=== PATIENT | female | born 1955 | race Caucasian/White ===

== ENCOUNTER 2018-07-19 05:05 | Emergency (ER) | payer OTHER ==
--- NOTE | 2018-07-19 05:11 | PDOC ---
History of Present Illness - General History Source: Patient Exam Limitations: No Limitations - History of Present Illness Initial Comments: 07/19/18 06:03 The patient is a 63 year old female, with a significant past medical history of DM, HTN, HLD, who presents to the emergency department s/p mechanical fall with , left ankle pain. As per patient, she was at a bar drinking tequila and playing pool when she jumped up and fell inverting her left ankle while wearing heels. She reports hearing and feeling a crack in the left ankle. She describes her pain as a constant 10/10. She denies hitting her head or any loss of consciousness. She denies recent fevers, chills, headache or dizziness. She denies recent nausea, vomit, diarrhea or constipation. She denies recent dysuria, frequency, urgency or hematuria. She denies recent chest pain or shortness of breath. Allergies: Naproxen sodium, tramadol, aleve Primary Care Physician: Dr. Mcconnell <Kalee Arnold - Last Filed: 07/19/18 06:14> <Stephanie Shook - Last Filed: 07/19/18 19:41> - General Stated Complaint: INJURY,LT ANKLE Time Seen by Provider: 07/19/18 05:11 Past History <Kalee Arnold - Last Filed: 07/19/18 06:14> - Past Medical History Anemia: Yes Asthma: No Cancer: No Cardiac Disorders: No CVA: No COPD: No CHF: No Dementia: No Diabetes: Yes (NIDDM) GI Disorders: Yes (ACID REFLUX) Disorders: No HTN: Yes Hypercholesterolemia: Yes Liver Disease: No Seizures: No Thyroid Disease: No - Surgical History Abdominal Surgery: No Appendectomy: No Cardiac Surgery: No Cholecystectomy: Yes Lung Surgery: No Neurologic Surgery: Yes (surgery back and neck) Orthopedic Surgery: No - Immunization History Immunization Up to Date: Yes - Suicide/Smoking/Psychosocial Hx Smoking Status: No Smoking History: Never smoked Have you smoked in the past 12 months: No Number of Cigarettes Smoked Daily: 0 If you are a former smoker, when did you quit?: 6YRS AGO Hx Alcohol Use: No Drug/Substance Use Hx: No Substance Use Type: None Hx Substance Use Treatment: No <Stephanie Shook - Last Filed: 07/19/18 19:41> - Past Medical History Allergies/Adverse Reactions: Allergies Allergy/AdvReac Type Severity Reaction Status Date / Time naproxen sodium Allergy Severe Hives Verified 07/19/18 05:29 [From Anaprox] tramadol Allergy Severe Hives Verified 07/19/18 05:29 ALLEVE AdvReac Severe Hives Uncoded 07/19/18 05:29 Home Medications: Ambulatory Orders Oxycodone HCl/Acetaminophen [Percocet 5-325 mg Tablet] 1 - 2 tab PO Q6H PRN #24 tab MDD 8 tabs 07/19/18 Review of Systems - Review of Systems Able to Perform ROS?: Yes Comments:: 07/19/18 06:03 GENERAL/CONSTITUTIONAL: No fever or chills. No weakness. HEAD, EYES, EARS, NOSE AND THROAT: No change in vision. No ear pain or discharge. No sore throat. CARDIOVASCULAR: No chest pain or shortness of breath. RESPIRATORY: No cough, wheezing, or hemoptysis. GASTROINTESTINAL: No nausea, vomiting, diarrhea or constipation. GENITOURINARY: No dysuria, frequency, or change in urination. +MUSCULOSKELETAL: Left ankle pain. No neck or back pain. SKIN: No rash NEUROLOGIC: No headache, vertigo, loss of consciousness, or change in strength/ sensation. ENDOCRINE: No increased thirst. No abnormal weight change. HEMATOLOGIC/LYMPHATIC: No anemia, easy bleeding, or history of blood clots. ALLERGIC/IMMUNOLOGIC: No hives or skin allergy. All Other Systems: Reviewed and Negative <Kalee Arnold - Last Filed: 07/19/18 06:14> *Physical Exam - Vital Signs Last Vital Signs Temp Pulse Resp BP Pulse Ox 98.2 F 109 H 20 123/79 96 07/19/18 05:18 07/19/18 05:18 07/19/18 05:18 07/19/18 05:18 07/19/18 05:18 - Physical Exam Comments: 07/19/18 06:14 GENERAL: Awake, alert, and fully oriented, in no acute distress HEAD: No signs of trauma EYES: PERRLA, EOMI, sclera anicteric, conjunctiva clear ENT: Auricles normal inspection, hearing grossly normal, nares patent, oropharynx clear without exudates. Moist mucosa NECK: Normal ROM, supple, no lymphadenopathy, JVD, or masses LUNGS: Breath sounds equal, clear to auscultation bilaterally. No wheezes, and no crackles HEART: Regular rate and rhythm, normal S1 and S2, no murmurs, rubs or gallops ABDOMEN: Soft, nontender, normoactive bowel sounds. No guarding, no rebound. No masses +LEFT ANKLE: Left ankle deformity to the medial aspect with large swelling and bruising. DP and PT pulses are intact. Tenderness with movement to the ankle. Able to move toes. Unstable fracture noted, will admit. NEUROLOGICAL: Cranial nerves II through XII grossly intact. Normal speech, normal gait SKIN: Warm, Dry, normal turgor, no rashes or lesions noted. <Kalee Arnold - Last Filed: 07/19/18 06:14> ED Treatment Course - Medications Given in the ED: ED Medications Discontinued Medications Generic Name Dose Route Start Last Admin Trade Name Freq PRN Reason Stop Dose Admin Oxycodone/Acetaminophen 2 combo 07/19/18 05:11 07/19/18 05:35 Percocet 5/325 - PO 07/19/18 05:12 2 combo ONCE ONE Administration <Kalee Arnold - Last Filed: 07/19/18 06:14> - LABORATORY CBC & Chemistry Diagram: 07/19/18 06:18 07/19/18 06:18 <Stephanie Shook - Last Filed: 07/19/18 19:41> Medical Decision Making - Medical Decision Making 07/19/18 06:11 Pt has an unstable left ankle fracture she will get XRAYs and preop labs and she will be admitted. 07/19/18 07:23 Pt signed out to the day team attending in the ER <Stephanie Shook - Last Filed: 07/19/18 19:41> *DC/Admit/Observation/Transfer - Attestations Scribe Attestion: 07/19/18 06:03 Documentation prepared by Kalee Arnold, acting as medical insurance claims processor for Stephanie Shook MD. <Kalee Arnold - Last Filed: 07/19/18 06:14> <Stephanie Shook - Last Filed: 07/19/18 19:41> Diagnosis at time of Disposition: Closed left tibial fracture, Closed fibular fracture - Discharge Dispostion Disposition: HOME Condition at time of disposition: Stable - Prescriptions Prescriptions: Oxycodone HCl/Acetaminophen [Percocet 5-325 mg Tablet] 1 - 2 tab PO Q6H PRN #24 tab MDD 8 tabs PRN Reason: Severe Pain - Referrals Referrals: Alfonzo Peres MD [Primary Care Provider] - Jt Coy MD [Staff Physician] - - Patient Instructions Printed Discharge Instructions: DI for Ankle Fracture Additional Instructions: Please return to the emergency department with any new or worsening symptoms or concerns. Please follow up with your primary care physician within 72 hours. Please remain non weight bearing off foot and ambulate with crutches until able to follow up with Dr. Coy orthopedist in office within 4-5 days. Please keep foot dry and do not remove cast. Take medication as prescribed for pain control.
[2018-07-19 05:29] VITALS: BMI 29.6
[2018-07-19 06:39] LABS: BASO % 0.5 % (0-2.0); EOS % 0.2 % (0-4.5); HEMATOCRIT 40.6 % (32.4-45.2); HEMOGLOBIN 13.8 GM/dL (10.7-15.3); LYMPH % 20.5 % (8-40); MCHC 33.9 g/dl (32.0-36.0); MEAN CELL VOLUME 88.7 fl (80-96); MEAN PLT VOLUME 8.5 fl (7.5-11.1); MONO % 4.3 % (3.8-10.2); NEUT % 74.5 % (42.8-82.8); PLATELET COUNT 259 K/MM3 (134-434); RBC 4.58 M/mm3 (3.60-5.2); RDW 13.2 % (11.6-15.6); WHITE BLOOD COUNT 7.1 K/mm3 (4.0-10.0)
[2018-07-19 06:53] LABS: INR 0.98 (0.83-1.09); PROTHROMBIN TIME (PATIENT) 11.1 SEC (9.7-13.0)
[2018-07-19 07:10] LABS: ALBUMIN 4.1 g/dl (3.4-5.0); ANION GAP 11 MMOL/L (8-16); BLOOD UREA NITROGEN 11 mg/dL (7-18); CALCIUM 9.6 mg/dL (8.5-10.1); CHLORIDE 104 mmol/L (98-107); CO2 27 mmol/L (21-32); CREATININE 0.8 mg/dL (0.55-1.02); GLUCOSE,RANDOM 154 mg/dL (74-106); SGPT/ALT 29 U/L (12-78); SODIUM 142 mmol/L (136-145)
[2018-07-19 07:12] LABS: ALK PHOS 104 U/L (45-117); BILIRUBIN,TOTAL 0.7 mg/dL (0.2-1.0); TOT PROT 7.9 g/dl (6.4-8.2)
[2018-07-19 07:28] LABS: SGOT/AST 25 U/L (15-37)
--- NOTE | 2018-07-19 10:08 | PDOC ---
*Physical Exam - Vital Signs Last Vital Signs Temp Pulse Resp BP Pulse Ox 98.2 F 109 H 20 123/79 96 07/19/18 05:18 07/19/18 05:18 07/19/18 05:18 07/19/18 05:18 07/19/18 05:18 - Physical Exam Comments: 07/19/18 10:05 GENERAL: Awake, alert, and fully oriented, in no acute distress HEAD: No signs of trauma, normocephalic, atraumatic EYES: PERRLA, EOMI, sclera anicteric, conjunctiva clear ENT: Hearing grossly normal, nares patent, oropharynx clear without exudates. Moist mucosa NECK: Normal ROM, supple, no lymphadenopathy, JVD, or masses LUNGS: No distress, speaks full sentences, clear to auscultation bilaterally HEART: Regular rate and rhythm, normal S1 and S2, no murmurs, rubs or gallops, peripheral pulses normal and equal bilaterally. LLE: + Left medial and lateral malleolus ttp, and edema, and distal tib/fib ttp. ROM limited 2/2 pain. No overlying skin changes. EXTREMITIES : Normal inspection, Normal range of motion, no edema. No clubbing or cyanosis. SKIN: Warm, Dry, normal turgor, no rashes or lesions noted ED Treatment Course - LABORATORY CBC & Chemistry Diagram: 07/19/18 06:18 07/19/18 06:18 - ADDITIONAL ORDERS Additional order review: Laboratory Results 07/19/18 07/19/18 07/19/18 06:18 06:18 06:18 PT with INR 11.10 INR 0.98 PTT (Actin FS) Sodium 142 Potassium 4.0 Chloride 104 Carbon Dioxide 27 Anion Gap 11 BUN 11 Creatinine 0.8 Creat Clearance w eGFR > 60 Random Glucose 154 H Calcium 9.6 Total Bilirubin 0.7 AST 25 ALT 29 Alkaline Phosphatase 104 Total Protein 7.9 Albumin 4.1 Blood Type A POSITIVE Antibody Screen Negative 07/19/18 06:18 PT with INR INR PTT (Actin FS) 26.0 Sodium Potassium Chloride Carbon Dioxide Anion Gap BUN Creatinine Creat Clearance w eGFR Random Glucose Calcium Total Bilirubin AST ALT Alkaline Phosphatase Total Protein Albumin Blood Type Antibody Screen 07/19/18 06:18 RBC 4.58 MCV 88.7 MCHC 33.9 RDW 13.2 MPV 8.5 Neutrophils % 74.5 D Lymphocytes % 20.5 D Monocytes % 4.3 Eosinophils % 0.2 D Basophils % 0.5 - Medications Given in the ED: ED Medications Discontinued Medications Generic Name Dose Route Start Last Admin Trade Name Aurea PRN Reason Stop Dose Admin Oxycodone/Acetaminophen 2 combo 07/19/18 05:11 07/19/18 05:35 Percocet 5/325 - PO 07/19/18 05:12 2 combo ONCE ONE Administration Oxycodone/Acetaminophen 2 combo 07/19/18 09:37 07/19/18 09:45 Percocet 5/325 - PO 07/19/18 09:38 2 combo ONCE ONE Administration Medical Decision Making - Medical Decision Making 07/19/18 10:03 63 yo F with h/o HTN, DM, HLD, who presents s/p mechanical fall now left ankle pain. Patient reports feeling a "cracking" sensation in the left ankle after falling, while dancing in a bar. + Left medial and lateral malleolus ttp, and edema, and distal tib/fib ttp. No other complaints. Denies head/neck/back trauma or LOC. Patient with limping gait following event. VSS, AF. R/o Left ankle fracture vs. dislocation. Patient received Percocet for pain control. Allergies include Tramadol with Hives/itching. Ed Course: 07/19/18 10:06 CBC, CMP: Unremarkable 07/19/18 10:06 RAD ANKLE/FOOT LEFT: Comminuted distal tibia fracture and oblique fracture of distal fibular shaft. Foot is intact. Perocet for pain. 07/19/18 10:08 CXR: No acute pathology 07/19/18 10:20 Contacted [facility] [employer] answering service [phone]. Waiting call back 07/19/18 10:[address] corbett, patient to elevate leg above 45 degrees, and patient to wait for surgery until swelling goes down. No evidence of angulation or displacement of fracture on RAD. Patient to follow up with orthopedics within one week ( Dr. Coy) and leg to be splinted. Does not believe reason for admission. 07/19/18 13:33 Spoke to patient. Counseled patient on pain control, foot elevation, and need to follow up with Dr. Coy in 4-5 days. Advised non weight bearing status. and applied ortho glass splint to LLE. Patient stable for d/c with return precautions. *DC/Admit/Observation/Transfer Diagnosis at time of Disposition: Closed left tibial fracture Qualifiers: Encounter type: initial encounter Tibia location: distal Fracture morphology: unspecified fracture morphology Qualified Code(s): S82.302A - Unspecified fracture of lower end of left tibia, initial encounter for closed fracture Closed fibular fracture Qualifiers: Encounter type: initial encounter Fibula location: shaft Fracture morphology: oblique Fracture alignment: nondisplaced Laterality: unspecified laterality Qualified Code(s): S82.436A - Nondisplaced oblique fracture of shaft of unspecified fibula, initial encounter for closed fracture - Discharge Dispostion Disposition: HOME Condition at time of disposition: Stable - Referrals Referrals: Alfonzo Peres MD [Primary Care Provider] - Jt Coy MD [Staff Physician] - - Patient Instructions Printed Discharge Instructions: DI for Tibial Plateau Fracture Additional Instructions: Please return to the emergency department with any new or worsening symptoms or concerns. Please follow up with your primary care physician within 72 hours. Please remain non weight bearing off foot and ambulate with crutches until able to follow up with Dr. Coy orthopedist in office within 4-5 days. Please keep foot dry and do not remove cast. Take medication as prescribed for pain control. - Post Discharge Activity - Attestations Physician Attestion: 07/19/18 10:10 I attest to the information provided in this note. Procedure Note Procedure: LLE Tib/Fib fracture splint applied. Patient leg immobilized with size 4 ortho glass with tubular stocking, and dressing applied underneath. Leg wrapped in 3 mulu bandages.
[2018-07-19 11:25] VITALS: TEMP 98.6
[2018-07-19] MEDS ORDERED: morphine CARPU-JECT 4 MG/1 ML DISP.SYRIN IVPUSH ONE (11:48)
[2018-07-19] MEDS ORDERED: morphine SULFATE 4 MG/ML VIAL ONE (12:19)
[2018-07-19 15:11] VITALS: BP 124/74; PULSE 78
--- NOTE | 2018-07-21 14:02 | EKG ---
Test Reason : Blood Pressure : / mmHG Vent. Rate : 108 BPM Atrial Rate : 108 BPM P-R Int : 164 ms QRS Dur : 086 ms QT Int : 356 ms P-R-T Axes : 034 014 016 degrees QTc Int : 477 ms SINUS TACHYCARDIA OTHERWISE NORMAL ECG WHEN COMPARED WITH ECG OF 22-FEB-2016 20:45, ST NO LONGER ELEVATED IN INFERIOR LEADS Confirmed by ELOISA BROOKS MD ([id number]) on 07/21/2018 2:01:47 PM Referred By: Confirmed By:ELOISA BROOKS MD
== END 2018-07-19 15:09 | disposition home or self-care (01) ==
LOC: JER 05:05
PROC: 3E033NZ Introduction of Analgesics, Hypnotics, Sedatives into Peripheral Vein, Percutaneous Approach (ICD-10-PCS; principal; 2018-07-19)
PROC: 2W3RX1Z Immobilization of Left Lower Leg using Splint (ICD-10-PCS; 2018-07-19)
DX: S82.436A Nondisplaced oblique fracture of shaft of unspecified fibula, initial encounter for closed fracture (principal); S82.252A Displaced comminuted fracture of shaft of left tibia, initial encounter for closed fracture; W18.39XA Other fall on same level, initial encounter; Y93.89 Activity, other specified; Y92.59 Other trade areas as the place of occurrence of the external cause; Y99.8 Other external cause status
CPT/HCPCS: 29515; 36415; 71045-TC-FY; 73610-TC-LT-FY; 73630-TC-LT; 80053; 85025; 85610; 85730; 86850; 86900; 86901; 93005; 93010; 96374; 99284-25

== ENCOUNTER 2018-07-31 08:42 | Day surgery (SDC) | payer OTHER ==
[2018-07-31] MEDS ORDERED: LIDOCAINE HCL/PF 2% SDV 5ML VIAL ONE (08:51)
[2018-07-31] MEDS ORDERED: PROPOFOL 20 ML ONE ×4 (08:51→13:20)
[2018-07-31 09:16] VITALS: BMI 28.3
[2018-07-31] MEDS ORDERED: MIDAZOLAM HCL 2 MG/2 ML SINGLE DOSE VIAL ONE ×3 (09:23→11:35)
[2018-07-31] MEDS ORDERED: ROCURONIUM BROMIDE 50 MG/5 ML VIAL ONE (09:24)
[2018-07-31] MEDS ORDERED: DEXAMETHASONE SOD PHOSPHATE/PF 10 MG/ML SDV ONE (10:13)
[2018-07-31] MEDS ORDERED: ROPIVACAINE HCL 0.5% 30ML VIAL ONE (10:13)
[2018-07-31] MEDS ORDERED: KETAMINE HCL 500 MG/10 ML VIAL ONE (10:31)
[2018-07-31] MEDS ORDERED: ONDANSETRON 4 MG/2 ML VIAL ONE ×2 (11:32→13:26)
[2018-07-31] MEDS ORDERED: DEXAMETHASONE SOD PHOSPHATE 4 MG/1 ML VIAL ONE (11:32)
--- NOTE | 2018-07-31 14:02 | OP ---
Operative Note - Note: Operative Date: 07/31/18 Pre-Operative Diagnosis: left trimalleolar ankle fracture Operation: left ankle open reduction internal fixation Implants: [employer] ankle solutions. 8 hole and 3 hold plates with 3.5mm locking/ nonlocking screws. 2.7 lag screw. 4.0 cannulated screws x2 Post-Operative Diagnosis: Same as Pre-op Surgeon: Jt Coy [employer] Engineer: Maximino Noriega Anesthesia: Fractional Operative Report Dictated: Yes
--- NOTE | 2018-07-31 14:47 | OP ---
DATE OF OPERATION: 07/31/2018 PREOPERATIVE DIAGNOSIS: Left trimalleolar ankle fracture. POSTOPERATIVE DIAGNOSIS: Left trimalleolar ankle fracture. PROCEDURE: Left ankle open reduction and internal fixation. SURGEON: Jt Coy MD ASSISTANTS: Maximino Noriega MD, whose skillful assistance was necessary for the safe and timely performance of this procedure. Dr. Noriega was able to help provide limb positioning, retraction and fracture reduction as well as insertion of orthopedic fixation hardware. Bjorn García, physician rehab care assistant, also assisted. ANESTHESIA: Regional. POSTOPERATIVE CONDITION: Stable. COMPLICATIONS: None. IMPLANT: [place] 8-hole distal fibula plate, 3-hole posterior buttress plate and two 4.0 cannulated screws medially. TOURNIQUET TIME: Total is 2 hours. INDICATIONS: This is a 63-year-old female who suffered a twisting injury to the ankle. She was found to have a displaced trimalleolar ankle fracture. Treatment options including nonoperative versus operative management were reviewed. Operative risks were reviewed in detail including bleeding, infection, neurovascular injury, need for further surgery, need for hardware removal, nonunion, malunion, hardware failure or cutout. We discussed the possibility of posttraumatic arthrosis. We reviewed the lengthy recovery from surgery and weightbearing limitations afterwards. I addressed the use of preoperative antibiotic and DVT prophylaxis. PROCEDURE: Patient was brought to the operating room after administration of a regional block in the preoperative holding area. She was placed in the prone position, careful to pad all the bony prominences. Patient was then prepped and draped in the usual sterile fashion. The preoperative dose of antibiotic was given and the usual timeout procedure was performed. The incision was now planned out midway between the Achilles tendon and the posterior aspect of the fibula. After exsanguination and tourniquet inflation, the incision was carried down through the skin, through the subcutaneous tissue. Blunt spreading was used to expose the peroneal fascia. The fascia was then incised in line with its fibers and the peroneal tendons were mobilized medially. This exposed the posterior aspect of the fibula. Utilizing electrocautery as well as periosteal elevator, the posterior aspect of the fibula was exposed. Here, a comminuted fracture was noted of the fibula. There was a coronal split in the more proximal fragment. This was reduced using a fracture reduction forceps and a 2.7-mm lag screw was used in an [id number] direction. The fracture was attempted to be reduced. However, at this point a proper reduction was not obtained. Decision was now made to perform exposure of the medial aspect of the incision. The fascia over the FHL was incised in line with the limb. The FHL was elevated subperiosteally medially. This exposed the posterior aspect of the tibia. Here, the posterior malleolar fragment was also noted to be comminuted. In addition, the apex of the distal fragment was wedged into the shaft of the tibia preventing reduction. After freeing up the soft tissues about the fragment comminution, this was able to be reduced. Attention was then turned back to the fibula. Here, given the comminution, a lag reduction was not possible. the K-wire was used to hold the distal fragment in a reduced position as well as a fracture reduction forceps on the distal fragment. The plate was now bent to contour to the fibula. It was then affixed to the fibula both proximally and distally using a combination of locking and nonlocking screws. At this point, the construct was examined both visually and fluoroscopically and both fracture reduction and hardware placement were satisfactory. Attention was now turned back to the tibial window of the incision. Here, it was decided to provide a fracture fixation. A 3-hole plate was chosen and affixed using nonlocking screws. Purchase on these screws was mediocre and therefore locking screws were then used to replace these. The articular surface was congruent. However, there was still a small gap. At this point, it was decided to place a lag screw across the articular surface. This was done under realtime fluoroscopy to ensure proper screw placement. After placing the 3.5 lag screw, the gap in the joint surface closed down satisfactorily. At this point, both the lateral and posterior malleolar construct were examined fluoroscopically and both were satisfactory. The wound was copiously irrigated. Subcutaneous tissue was approximated using 3-0 Vicryl. The skin was closed using running 3-0 nylon. Sterile dressings were placed. The tourniquet was let down now after an hour and a half. The patient was now flipped into the supine position. She was reprepped and draped. The tourniquet was reinflated. The timeout was repeated. The incision was now made medially over the palpably displaced fragment of the medial malleolus in a curvilinear fashion. This was carried down through skin, through subcutaneous tissue. Blunt spreading was used then to expose the fracture site. Here also some moderate comminution was present. The fracture was now manually reduced and then held in place with 2 K-wires. Using an oval drill the two 4.0 cannulated screws were inserted. The 1st 60-mm screw was noted to be somewhat long. Therefore, this was traded out for a 50-mm screw. At this point, the entire construct was examined both visually and fluoroscopically. Both fracture reduction and hardware placement were satisfactory. The medial site was irrigated. The subcutaneous tissue was approximated using 3-0 Vicryl. The skin was closed using 3-0 nylon. The tourniquet was let down after less than half an hour. The sterile dressings were placed. The patient was then placed into a well-padded short-leg cast which was bivalved. She was transferred to the recovery room in stable condition. Yesica [id number]
[2018-07-31] MEDS ORDERED: ONDANSETRON 4 MG/2 ML VIAL IVPUSH PRN (15:51)
[2018-07-31] MEDS ORDERED: oxyCODONE HCL 5 MG TABLET PO PRN ×2 (15:51)
[2018-07-31] MEDS ORDERED: LACTATED RINGERS SOLUTION 1,000 ML IV SCH (16:00)
[2018-07-31 16:06] VITALS: PULSE 71; TEMP 97.4
[2018-07-31 16:14] VITALS: BP 128/78
== END 2018-07-31 16:40 | disposition home or self-care (01) ==
LOC: FASU 08:42
PROVIDERS: ATTEND Orthopaedic Surgery Sports Medicine
PROC: 0QSH04Z Reposition Left Tibia with Internal Fixation Device, Open Approach (ICD-10-PCS; 2018-07-31)
PROC: 0QSH04Z Reposition Left Tibia with Internal Fixation Device, Open Approach (ICD-10-PCS; 2018-07-31)
PROC: 0QSK04Z Reposition Left Fibula with Internal Fixation Device, Open Approach (ICD-10-PCS; principal; 2018-07-31 11:14)
DX: S82.852A Displaced trimalleolar fracture of left lower leg, initial encounter for closed fracture (principal); X50.0XXA Overexertion from strenuous movement or load, initial encounter; Y93.9 Activity, unspecified; Y92.9 Unspecified place or not applicable
CPT/HCPCS: 73610-TC-LT-FY; 82962

== ENCOUNTER 2020-01-22 06:36 | Emergency (ER) | payer OTHER ==
[2020-01-22 06:46] VITALS: BMI 26.1
[2020-01-22] MEDS ORDERED: SODIUM CHLORIDE 1,000 ML IV STA (07:18)
--- NOTE | 2020-01-22 07:18 | PDOC ---
History of Present Illness - General Chief Complaint: Substance Abuse Stated Complaint: AMS History Source: Family Exam Limitations: Clinical Condition - History of Present Illness Initial Comments: 64 year old female with PMH HTN, HLD, DM presented to ED for intoxication since last night. Daughter at bedside reported pt was out at a bar last night drinking [employer] ice teas, unsure of how many as she was with her other daughter, and then smoked marijuana for the first time in many years. She reported she was told after that that the patient was somnolent, altered, and she was called to bring the patient to the ED. Pt reported no complaints to her. Daughter denied history of fall/head injury. ROS - unable to perform 2/2 pts clinical mental status, intoxicated PE Constitutional: Well-nourished, Well-developed, appearing stated age. smells of ETOH. HEENT: head is normocephalic, atraumatic. EOMI. PERRLA. no scalp hematoma. no midline c-spine tenderness to palpation. no pinpoint pupils. Neck: supple. Full ROM. Cardiovascular: regular heart rhythm. Normal S1 and S2. no murmurs. no pericardial friction rub. Respiratory: clear to auscultation bilaterally. no crackles, rhonchi or wheezi ng. no stridor. Gastrointestinal: soft, flat, nontender. normal bowel sounds. no rebound, guarding, or masses. Back: no midline T-spine or L-spine tenderness to palpation. No step offs. No bruising. No abrasions. Pelvis: lower extremities equal in length without external rotation. No hip tenderness to palpation. Extremities: peripheral pulses intact and equal. no lower extremity edema noted. Neurological: CN 2-12 grossly intact. moves all four extremities. Psych: somnolent. does not follow commands. awakens to voice. oriented to person. Past History - Past Medical History Allergies/Adverse Reactions: Allergies Allergy/AdvReac Type Severity Reaction Status Date / Time naproxen sodium Allergy Severe Hives Verified 01/22/20 06:44 [From Anaprox] tramadol Allergy Severe Hives Verified 01/22/20 06:44 ALLEVE AdvReac Severe Hives Uncoded 01/22/20 06:44 Home Medications: Ambulatory Orders Atorvastatin Ca [Lipitor] 10 mg PO DAILY 07/29/18 Calcium 250Mg/Vit-D 125 Units [Oscal 250 mg+D -] 1 combo PO DAILY 07/29/18 Gabapentin 300 mg PO BID 07/29/18 Glipizide [Glucotrol Xl] 5 mg PO DAILY 07/29/18 Levothyroxine [Synthroid -] 25 mcg PO DAILY 07/29/18 Linaclotide [Linzess] 145 mcg PO DAILY 07/29/18 Linagliptin [Tradjenta] 5 mg PO HS 07/29/18 Aspirin [ASA -] 81 mg PO DAILY 09/10/19 Azilsartan Med/Chlorthalidone [Edarbyclor 40-12.5 mg Tablet] 1 each PO DAILY 09/10/19 Ergocalciferol (Vitamin D2) [Vitamin D2] 50,000 unit PO Q7D 09/10/19 Oxycodone HCl/Acetaminophen [Endocet 5-325 Tablet] 1 tab PO BID PRN 09/10/19 - Psycho Social/Smoking Cessation Hx Number of Cigarettes Smoked Daily: 0 If you are a former smoker, when did you quit?: many years ago *Physical Exam - Vital Signs Last Vital Signs Temp Pulse Resp BP Pulse Ox 97.7 F 106 H 18 118/82 95 01/22/20 06:43 01/22/20 06:43 01/22/20 06:43 01/22/20 06:43 01/22/20 06:43 Medical Decision Making - Medical Decision Making 64 year old female with above PMH presented to ED with daughter for intoxication of ETOH/THC. Initial Vital Signs Temp Pulse Resp BP Pulse Ox 97.7 F 106 H 18 118/82 95 01/22/20 06:43 01/22/20 06:43 01/22/20 06:43 01/22/20 06:43 01/22/20 06:43 Afebrile. Tachycardic. No tachypnea. No hypotension. No hypoxia on room air. Labs ordered: POC Glucose Imaging ordered: none Medications ordered: normal saline bolus 1000 cc once EKG performed at 0655: rate 105, regular rhythm, normal axcus, normal intervals, QTc 377, no acute ST changes. Will IV fluid hydrate and observe. Daughter agrees with plan for care. Laboratory Last Values POC Glucometer 204 UNITS (80-120) 01/22/20 07:58 01/22/20 08:17 Pt awakens more easily now, will follow commands. 01/22/20 09:40 Pt awake and alert, oriented x3, reported smoking an unknown substance last night prior to symptoms developing, reported she is feeling better and would like for her daughter to take her home to [facility]. Pt is ambulatory with steady gate, no nystagmus bilaterally. Discharge - Discharge Information Problems reviewed: Yes Clinical Impression/Diagnosis: Altered mental status, Intoxication Condition: Improved Disposition: HOME - Admission No - Follow up/Referral - Patient Discharge Instructions Additional Instructions: Follow up with your primary care doctor within 3 days regarding your ER visit. Your care is not complete until you follow up. Bring all paperwork given to you today to your appointment. Take tylenol over the counter for pain. Take as advised on label. Drink lots of water today. Get lots of sleep today. Return to the ER for headache, numbness, tingling, vomiting, dizziness, lightheadedness, chest pain, shortness of breath, fever, or any other new, worsening or concerning symptoms. - Post Discharge Activity
--- NOTE | 2020-01-22 10:08 | PDOC ---
Documentation entered by Kalee Arnold SCRIBE, acting as scribe for Haroldo Bonilla MD. Haroldo Bonilla MD: This documentation has been prepared by the Clayton gonsalez Nirvannie, SCRIBE, under my direction and personally reviewed by me in its entirety. I confirm that the documentation accurately reflects all work, treatment, procedures, and medical decision making performed by me. Attending Attestation - Resident Resident Name: Maura Solis - ED Attending Attestation I have performed the following: I have examined & evaluated the patient, The case was reviewed & discussed with the resident, I agree w/resident's findings & plan, Exceptions are as noted - HPI HPI: 01/22/20 10:03 CC: Intoxication HPI: The patient is a 64 year old female, with a significant past medical history of hypertension, hyperlipidemia, diabetes mellitus, undiagnosed depression (as per daughter at bedside), who presents to the emergency department with intoxication. As per patient upon waking up, she was drinking an unknown amount of alcohol then smoked an unknown substance last night. Daughter at bedside, notes she was drinking an unknown amount of [place] iced teas last night then smoked marijuana for the first time in a prolonged period of time prior to her intoxication. Patient initially presented somnolent, altered, and called her daughter to bring her to the ED. Upon evaluation, patient is alert to person, place, time, and notes to feel much better. She denies recent fevers, chills, headache or dizziness. She denies recent nausea, vomit, diarrhea or constipation. She denies recent dysuria, frequency, urgency or hematuria. She denies recent chest pain or shortness of breath. Allergies: Naproxen, Tramadol, Alleve - Physicial Exam PE: 01/22/20 10:04 Exam: Vitals: Triage Vital signs reviewed General Appearance: Sleepy but, arousable on exam. no acute distress, well nourished well developed, Head: Atraumatic, normocephalic Neck: Supple;No Nuchal rigidity Chest Wall: Nontender Cardiac: Regular rate and rhythm, no murmurs, no rubs, no gallops, Lungs: Clear to auscultation bilateral, good air movement bilaterally, Abdomen: Soft, nondistended, normal bowel sounds, nontender to palpation Extremities: Full range of motion to all extremities, no cyanosis, clubbing, or edema Skin: Warm and dry, no rashes or lesions, no petechiae Neuro: AOX3; Cranial Nerves 2-12 grossly intact, Strength intact to all extremities, Sensation intact to all extremities Psych: normal mood, normal affect - Medical Decision Making 01/22/20 10:05 64 year old female, with a significant past medical history of hypertension, hyperlipidemia, diabetes mellitus, undiagnosed depression (as per daughter at bedside), who presents to the emergency department with intoxication. Plan is: EKG BGM Fluids Reassess 01/22/20 10:08 Patient presents status post drinking all night and smoking marijuana this morning has been metabolizing appropriately in the emergency department no complaints not suicidal Reevaluation 10 AM Here with daughter. Daughter will stay with patient. Patient has metabolized appropriately is now safe for discharge Daughter will stay with patient and will arrange for outpatient primary care follow-up Findings, need for follow-up and strict return instruction discussed with patient.
--- NOTE | 2020-01-22 11:04 | EKG ---
Test Reason : Blood Pressure : / mmHG Vent. Rate : 105 BPM Atrial Rate : 105 BPM P-R Int : 174 ms QRS Dur : 086 ms QT Int : 286 ms P-R-T Axes : 047 054 032 degrees QTc Int : 377 ms SINUS TACHYCARDIA NONSPECIFIC T WAVE ABNORMALITY ABNORMAL ECG Confirmed by SHARON MONTES MD ([id number]) on 01/22/2020 11:04:19 AM Referred By: Confirmed By:SHARON MONTES MD
[2020-01-22 11:53] VITALS: BP 122/74; PULSE 78; TEMP 98.6
== END 2020-01-22 11:55 | disposition home or self-care (01) ==
LOC: JER 06:36
PROC: 3E0337Z Introduction of Electrolytic and Water Balance Substance into Peripheral Vein, Percutaneous Approach (ICD-10-PCS; principal; 2020-01-22)
DX: F10.120 Alcohol abuse with intoxication, uncomplicated (principal); R41.82 Altered mental status, unspecified; Z88.8 Allergy status to other drugs, medicaments and biological substances; Z87.891 Personal history of nicotine dependence; I10 Essential (primary) hypertension; E78.5 Hyperlipidemia, unspecified; E11.9 Type 2 diabetes mellitus without complications
CPT/HCPCS: 82962; 93005; 93010; 96360; 99283-25; J7030